=== PATIENT | male | born 1980 | race Caucasian/White ===

== ENCOUNTER 2016-08-25 12:43 | Emergency (ER) | payer SELFPAY ==
[~2016-08-25] VITALS: Ht 182.9 cm; Wt 90.7 kg
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
--- NOTE | 2016-08-25 13:20 | NUR ---
GERARD WINDOW/DISTRIBUTION CLERK AT BEDSIDE FOR EVAL.
[2016-08-25 13:25] LABS: BILIRUBIN,URINE Negative (NEGATIVE); BLOOD, URINE Trace-lysed Ery/uL (NEGATIVE); COLOR,URINE Yellow (YELLOW); KETONES,URINE Negative (NEGATIVE); LEUKOCYTE ESTERASE ,URINE Small (NEGATIVE); NITRITE, URINE Negative (NEGATIVE); PH,URINE 5.5 (5.0-8.0); PROTEIN,URINE Negative (NEGATIVE); UGLUCOSE Negative (NEGATIVE); UROBILINOGEN,URINE 0.2 EU/dL (0.2)
[2016-08-25 13:27] LABS: APPEARANCE,URINE CLEAR (CLEAR)
[2016-08-25 13:58] LABS: BACTERIA,URINE Few /HPF (None Seen); RBC,URINE 0-3 /HPF (0-2); SQUAMOUS EPITHELIAL CELL,UR Rare /HPF (None Seen); WBC,URINE 15-25 /HPF (0-3)
[2016-08-25] MEDS ORDERED: CEFTRIAXONE 500 MG VIAL IM ONE (14:00)
[2016-08-25] MEDS ORDERED: AZITHROMYCIN 250 MG TABLET PO ONE (14:00)
[2016-08-25] MEDS ORDERED: AZITHROMYCIN 250 MG TABLET ONE (14:06)
[2016-08-25] MEDS ORDERED: CEFTRIAXONE 500 MG VIAL ONE (14:06)
[2016-08-25] MEDS ORDERED: LIDOCAINE /MPF 1% VIAL 5 ML VIAL ONE (14:07)
--- NOTE | 2016-08-25 14:27 | NUR ---
MEDICATED. NO ADVERSE REACTION NOTED. D/C IN STABLE CONDITION.
[2016-08-25 14:28] VITALS: BP 132/87
== END 2016-08-25 14:28 | disposition home or self-care (01) ==
LOC: ER 12:47
DX: S39.012A Strain of muscle, fascia and tendon of lower back, initial encounter (principal); A64 Unspecified sexually transmitted disease; F12.90 Cannabis use, unspecified, uncomplicated; F41.9 Anxiety disorder, unspecified; G89.29 Other chronic pain; F17.200 Nicotine dependence, unspecified, uncomplicated; V43.92XA Unspecified car occupant injured in collision with other type car in traffic accident, initial encounter; Y93.89 Activity, other specified; Y92.488 Other paved roadways as the place of occurrence of the external cause; Y99.8 Other external cause status
CPT/HCPCS: 81001; 96372; 99283; A4606; J0696 ×2; J3490 ×2; Z7610; 81000-TC